=== PATIENT | male | born 1940 | race Caucasian/White ===

== ENCOUNTER 2017-01-27 10:38 | Inpatient (IN) | payer MEDICARE, MEDICAID ==
[~2017-01-27] VITALS: Ht 175.3 cm; Wt 97.7 kg
[~2017-01-27 10:38] MED LIST: AMOXICILLIN 8751 TAB PO; ASPIRIN E.C. 8181 MG PO; COZAAR 50MG50 MG/TAB PO; LASIX 40MG TABL40 MG PO; LEVEMIR FLEXPEN SC; LIPITOR 40MG TA40 MG PO; NORCO 325 MG-51 TAB PO; NOVOLOG FLEX100 U/ML SC; PLAVIX 75MG TAB75 MG PO; Phenergan PO; TYLENOL 500MG500 MG PO; VITAMIN D1000 IU PO; ZOCOR 80MG80 MG PO; ZYLOPRIM 300MG300 MG PO
[2017-01-27 14:28] VITALS: BP 119/62; PULSE 102; TEMP 98.8
[2017-01-27] MEDS ORDERED: LEVEMIR FLEX100 U/ML SQ (15:19)
[2017-01-27] MEDS ORDERED: ASPIRIN 32325 MG/TAB PO (15:20)
[2017-01-27] MEDS ORDERED: LOPRESSOR 225 MG/TAB PO (15:22)
[2017-01-27 15:47] LABS: ADJUSTED CALCIUM 9.3 mg/dL (8.4-10.2); ALBUMIN 3.3 gm/dL (3.5-5.0); CALCIUM 8.7 mg/dL (8.4-10.2); CREATININE, serum 2.94 mg/dL (0.66-1.25); POTASSIUM 5.4 mmol/L (3.4-5.0)
[2017-01-27 16:43] VITALS: BP 121/65; PULSE 67; TEMP 100.9
[2017-01-27 19:43] VITALS: BP 122/44; PULSE 99; TEMP 97.1
[2017-01-27 22:32] VITALS: BP 138/53; PULSE 75; TEMP 98.1
[2017-01-28] VITALS (7 sets, daily range): BP systolic 89–172; BP diastolic 35–86; PULSE 65–80; TEMP 97.6–99.1
[2017-01-29 04:15] VITALS: BP 106/61; PULSE 70; TEMP 97.8
[2017-01-29 06:54] LABS: MEAN CELL VOLUME 93 fl (80.0-100.0); MEAN CORPUSCULAR HGB CONC 33 g/dl (33.0-37.0); PLATELET COUNT 77 K/mm3 (130-400); RED BLOOD COUNT 3.57 M/mm3 (4.20-5.60); REDCELL DISTRIBUTION WIDTH-CV 14.2 % (11.5-14.5); WHITE BLOOD COUNT 4.3 K/mm3 (4.8-10.8)
[2017-01-29 07:02] LABS: ADD PATHOLOGY DIFF REVIEW NO; HEMATOCRIT 33.2 % (42.0-52.0); HEMOGLOBIN 10.9 g/dl (13.5-18.0); MEAN CORPUSCULAR HEMOGLOBIN 31 pg (27.0-31.0)
[2017-01-29 07:45] LABS: CALCIUM 8.6 mg/dL (8.4-10.2); CREATININE, serum 3.76 mg/dL (0.66-1.25); POTASSIUM 5.1 mmol/L (3.4-5.0)
[2017-01-29 08:02] LABS: BAND 10 % (0-10); EOSINOPHIL 1 % (0-4); NEUTROPHILS 68 % (42.0-75.2); PLATELET ESTIMATE DECREASED (NORMAL); TOTAL CELLS COUNTED 100
[2017-01-29 08:07] LABS: THYROID STIMULATING HORMONE 1.94 uIU/mL (0.465-4.680)
[2017-01-29 08:58] VITALS: BP 104/56; PULSE 72; TEMP 98.6
[2017-01-29 09:03] LABS: THYROXINE (T4)-TOTAL 5.3 ug/dL (5.5-11.0)
[2017-01-29 12:30] VITALS: BP 114/58; PULSE 70; TEMP 99.7
[2017-01-29 16:00] VITALS: BP 105/53; PULSE 70; TEMP 97.5
[2017-01-29 20:57] VITALS: BP 101/56; PULSE 70; TEMP 97.8
[2017-01-30] VITALS (7 sets, daily range): BP systolic 100–142; BP diastolic 51–70; PULSE 69–72; TEMP 97–98.9
[2017-01-30 08:10] LABS: CALCIUM 8.8 mg/dL (8.4-10.2); CREATININE, serum 3.21 mg/dL (0.66-1.25); POTASSIUM 4.7 mmol/L (3.4-5.0)
[2017-01-31 04:43] VITALS: BP 107/52; PULSE 70; TEMP 97
[2017-01-31 07:35] VITALS: BP 107/55; PULSE 75; TEMP 97.6
[2017-01-31 07:46] LABS: CALCIUM 8.5 mg/dL (8.4-10.2); POTASSIUM 4.6 mmol/L (3.4-5.0)
[2017-01-31 08:24] LABS: CREATININE, serum 3.05 mg/dL (0.66-1.25)
[2017-01-31 12:25] VITALS: BP 97/60; PULSE 108; TEMP 97.5
[2017-01-31 15:21] VITALS: BP 88/42; PULSE 70; TEMP 97.4
[2017-01-31 16:40] VITALS: BP 117/51; PULSE 69
== END 2017-01-31 20:51 | disposition home or self-care (01) | DRG 871 ==
LOC: MEDICAL 10:38 → PEDS 11:57
PROVIDERS: Internal Medicine Cardiovascular Disease
DX: A41.9 Sepsis, unspecified organism (principal); J18.9 Pneumonia, unspecified organism; N17.9 Acute kidney failure, unspecified; I13.0 Hypertensive heart and chronic kidney disease with heart failure and stage 1 through stage 4 chronic kidney disease, or unspecified chronic kidney disease; I50.32 Chronic diastolic (congestive) heart failure; L97.229 Non-pressure chronic ulcer of left calf with unspecified severity; J20.9 Acute bronchitis, unspecified; Z95.0 Presence of cardiac pacemaker; I25.119 Atherosclerotic heart disease of native coronary artery with unspecified angina pectoris; E11.22 Type 2 diabetes mellitus with diabetic chronic kidney disease; N18.3 Chronic kidney disease, stage 3 (moderate); Z89.512 Acquired absence of left leg below knee; Z89.511 Acquired absence of right leg below knee; F17.210 Nicotine dependence, cigarettes, uncomplicated
CPT/HCPCS: 99223-AI; 99231-AI; 99239; J1650; J1815; J1940; J7040

== ENCOUNTER 2017-02-02 18:00 | Inpatient (IN) | payer MEDICARE, MEDICAID ==
[~2017-02-02] VITALS: Ht 175.3 cm; Wt 108.6 kg
[2017-02-02] VITALS (258 sets, daily range): BP systolic 86–114; BP diastolic 50–58; PULSE 77–87; TEMP 101.9–102.1; O2SAT 82–100
[~2017-02-02 18:00] MED LIST changes: +ASPIRIN 32325 MG/TAB PO; +LEVEMIR FLEX100 U/ML SQ; +LOPRESSOR 225 MG/TAB PO
[2017-02-02 19:58] LABS: INR 1.4 (0.8-3.0); PROTHROMBIN TIME 15.4 SECONDS (9.7-12.8)
[2017-02-02 20:00] LABS: MEAN CELL VOLUME 91 fl (80.0-100.0); MEAN CORPUSCULAR HGB CONC 34 g/dl (33.0-37.0); MEAN PLATELET VOLUME 11.4 fl (7.4-10.4); PLATELET COUNT 99 K/mm3 (130-400); REDCELL DISTRIBUTION WIDTH-CV 13.7 % (11.5-14.5); WHITE BLOOD COUNT 10.1 K/mm3 (4.8-10.8)
[2017-02-02 20:02] LABS: ADD PATHOLOGY DIFF REVIEW NO; HEMATOCRIT 30.1 % (42.0-52.0); HEMOGLOBIN 10.2 g/dl (13.5-18.0); MEAN CORPUSCULAR HEMOGLOBIN 31 pg (27.0-31.0)
[2017-02-02 20:17] LABS: BAND 4 % (0-10); NEUTROPHILS 93 % (42.0-75.2); TOTAL CELLS COUNTED 100
[2017-02-02 20:19] LABS: ANISOCYTOSIS 1+; HYPOCHROMIA 1+; POLYCHROMASIA 1+
[2017-02-02 21:10] LABS: VENOUS BLOOD GAS BE -4.1 (-4-4); VENOUS BLOOD GAS SAO2 53.1 % (60-80); VENOUS BLOOD GAS SITE CENTRAL LINE
[2017-02-02 22:11] LABS: ARTERIAL BLOOD GAS pH 7.46 (7.35-7.45)
[2017-02-02 22:13] LABS: ALLEN TEST NO; ARTERIAL BLD GAS O2 SATURATION 96.7 % (92-100); ARTERIAL BLD GAS TCO2 CT 15.6; ARTERIAL BLOOD GAS BASE EXCESS -7.4 (-2-2); ARTERIAL BLOOD GAS PO2 100.8 mmHg (80-100); ATS? NO
[2017-02-02 22:25] LABS: ADJUSTED CALCIUM 8.9 mg/dL (8.4-10.2); ALANINE AMINOTRANSFERASE 50 U/L (21-72); ALBUMIN 2.6 gm/dL (3.5-5.0); ALKALINE PHOSPHATASE 88 U/L (50-136); ANION GAP 12 mmol/L (7-16); BLOOD UREA NITROGEN 107 mg/dL (9-20); CALCIUM 7.8 mg/dL (8.4-10.2); CARBON DIOXIDE 20 mmol/L (22-30); CHLORIDE 109 mmol/L (98-107); GLUCOSE 212 mg/dL (74-106); POTASSIUM 4.5 mmol/L (3.4-5.0); SODIUM 140 mmol/L (137-145); TOTAL PROTEIN 5.8 gm/dL (6.4-8.2)
[2017-02-02 22:37] LABS: SALICYLATE < 1.0 mg/dL
[2017-02-02 22:38] LABS: CREATININE, serum 3.95 mg/dL (0.66-1.25); TROPONIN-I 0.898 ng/mL (0.000-0.034)
[2017-02-03] VITALS (398 sets, daily range): BP systolic 101–140; BP diastolic 34–46; PULSE 62–86; TEMP 97.7–100.8; O2SAT 92–100
[2017-02-03 00:15] LABS: ARTERIAL BLOOD GAS pH 7.43 (7.35-7.45)
[2017-02-03 00:16] LABS: ARTERIAL BLD GAS O2 SATURATION 96.4 % (92-100); ARTERIAL BLD GAS TCO2 CT 18.1; ARTERIAL BLOOD GAS BASE EXCESS -5.9 (-2-2); ARTERIAL BLOOD GAS HCO3 17.3 meq/L (22-26); ATS? NO
[2017-02-03 01:18] LABS: VENOUS BLOOD GAS BE -5.3 (-4-4); VENOUS BLOOD GAS SAO2 65.7 % (60-80); VENOUS BLOOD GAS SITE CENTRAL LINE
[2017-02-03 03:45] LABS: PH 5 (5-8); URINE APPEARANCE Turbid; URINE BACTERIA None Seen /hpf; URINE BILIRUBIN Negative (NEGATIVE); URINE BLOOD 3+ (NEGATIVE); URINE COLOR Amber; URINE GLUCOSE Negative (NEGATIVE); URINE KETONE Negative (NEGATIVE); URINE RBC >50 /hpf; URINE UROBILINOGEN Negative (NEGATIVE); URINE WBC >50 /hpf
[2017-02-03 06:23] LABS: INR 1.5 (0.8-3.0); PROTHROMBIN TIME 16.6 SECONDS (9.7-12.8)
[2017-02-03 06:26] LABS: ARTERIAL BLD GAS O2 SATURATION 97.7 % (92-100); ARTERIAL BLD GAS TCO2 CT 18.4; ARTERIAL BLOOD GAS BASE EXCESS -6.9 (-2-2); ARTERIAL BLOOD GAS HCO3 17.4 meq/L (22-26); ARTERIAL BLOOD GAS PO2 130.3 mmHg (80-100); ARTERIAL BLOOD GAS pH 7.36 (7.35-7.45)
[2017-02-03 06:27] LABS: VENOUS BLOOD GAS BE -5.7 (-4-4)
[2017-02-03 06:27] LABS: ATS? NO
[2017-02-03 06:28] LABS: VENOUS BLOOD GAS SITE CENTRAL LINE
[2017-02-03 06:28] LABS: ADJUSTED CALCIUM 8.8 mg/dL (8.4-10.2); ALBUMIN 2.7 gm/dL (3.5-5.0); BILIRUBIN,TOTAL 0.9 mg/dL (0.0-1.0); CALCIUM 7.8 mg/dL (8.4-10.2); POTASSIUM 4.9 mmol/L (3.4-5.0); TOTAL PROTEIN 6.1 gm/dL (6.4-8.2)
[2017-02-03 06:45] LABS: CREATININE, serum 3.92 mg/dL (0.66-1.25)
[2017-02-03 08:42] LABS: VENOUS BLOOD GAS BE -7.8 (-4-4)
[2017-02-03 08:43] LABS: VENOUS BLOOD GAS SITE CENTRAL LINE
[2017-02-03 11:27] LABS: VENOUS BLOOD GAS BE -8.3 (-4-4); VENOUS BLOOD GAS SAO2 78.9 % (60-80)
[2017-02-03 11:28] LABS: VENOUS BLOOD GAS SITE CENTRAL LINE
== END 2017-02-03 13:40 | disposition short-term general hospital (02) | DRG 871 ==
LOC: ICU 18:00 → IMCU 18:18 → ICU 02-03 13:40
PROVIDERS: Internal Medicine; Internal Medicine Cardiovascular Disease
PROC: 02HV33Z Insertion of Infusion Device into Superior Vena Cava, Percutaneous Approach (ICD-10-PCS; principal; 2017-02-02)
DX: A41.01 Sepsis due to Methicillin susceptible Staphylococcus aureus (principal); I33.0 Acute and subacute infective endocarditis; R65.21 Severe sepsis with septic shock; N17.0 Acute kidney failure with tubular necrosis; I21.4 Non-ST elevation (NSTEMI) myocardial infarction; J96.01 Acute respiratory failure with hypoxia; J44.1 Chronic obstructive pulmonary disease with (acute) exacerbation; B95.61 Methicillin susceptible Staphylococcus aureus infection as the cause of diseases classified elsewhere; I10 Essential (primary) hypertension; E11.65 Type 2 diabetes mellitus with hyperglycemia; I25.10 Atherosclerotic heart disease of native coronary artery without angina pectoris; Z95.5 Presence of coronary angioplasty implant and graft; F17.210 Nicotine dependence, cigarettes, uncomplicated; Z95.0 Presence of cardiac pacemaker; Z91.19 Patient's noncompliance with other medical treatment and regimen
CPT/HCPCS: 99239; J1250; J1650; J1720; J1815; J3370; J7030; J7040; J7050; J7060

== ENCOUNTER 2017-03-22 08:34 | Outpatient (RCR) | payer MEDICARE, MEDICAID ==
[~2017-03-22] VITALS: Ht 175.3 cm; Wt 211.0 kg
[2017-03-22] VITALS (11 sets, daily range): BP systolic 118–152; BP diastolic 50–69; PULSE 59–63; TEMP 97.2–97.7
[2017-03-22] MEDS ORDERED: ISORDIL 10MG10 MG PO (08:44)
[2017-03-22] MEDS ORDERED: MUCINEX DM 30 M1 TE1 PO (08:46)
[2017-03-22] MEDS ORDERED: APRESOLINE 10MG10 MG PO (08:48)
[2017-03-22] MEDS ORDERED: [UNRECOGNIZED DRUG - OTHER] PO (08:49)
[2017-03-22] MEDS ORDERED: NEPHROCAP PO (08:50)
[2017-03-22] MEDS ORDERED: COUMADIN 5MG5 MG/TAB PO (08:53)
[2017-03-22] MEDS ORDERED: NORCO 325 MG-51 TAB PO (08:54)
[2017-03-22] MEDS ORDERED: TYLENOL 325MG325 MG PO (08:54)
[2017-05-13] MEDS ORDERED: FLONASEALLERGY NS (09:49)
== END 2017-06-20 ==
LOC: EUO
DX: I50.9 Heart failure, unspecified (principal); E11.9 Type 2 diabetes mellitus without complications; I48.91 Unspecified atrial fibrillation
CPT/HCPCS: J7050; P9016

== ENCOUNTER → 2017-03-29 | Outpatient (CLI) | payer MEDICARE, MEDICAID ==
[~2017-03-29] MED LIST changes: +APRESOLINE 10MG10 MG PO; +COUMADIN 5MG5 MG/TAB PO; +FLONASEALLERGY NS; +ISORDIL 10MG10 MG PO; +MUCINEX DM 30 M1 TE1 PO; +NEPHROCAP PO; +TYLENOL 325MG325 MG PO; +[UNRECOGNIZED DRUG - OTHER] PO
== END ==
LOC: COL.LAB 10:24
DX: A41.01 Sepsis due to Methicillin susceptible Staphylococcus aureus (principal); I50.32 Chronic diastolic (congestive) heart failure; I48.91 Unspecified atrial fibrillation; D64.9 Anemia, unspecified; E11.21 Type 2 diabetes mellitus with diabetic nephropathy; N17.9 Acute kidney failure, unspecified; I51.89 Other ill-defined heart diseases; R06.81 Apnea, not elsewhere classified; J94.8 Other specified pleural conditions; R06.89 Other abnormalities of breathing; R21 Rash and other nonspecific skin eruption; T17.890A Other foreign object in other parts of respiratory tract causing asphyxiation, initial encounter; Z99.2 Dependence on renal dialysis; Z79.01 Long term (current) use of anticoagulants

== ENCOUNTER → 2017-04-07 | Outpatient (CLI) | payer MEDICARE, MEDICAID ==
[2017-04-07 19:58] LABS: INR 2.2 (0.8-3.0)
== END ==
LOC: ZCOL.LAB 19:38
PROVIDERS: Family Medicine
DX: I48.91 Unspecified atrial fibrillation (principal)

== ENCOUNTER → 2017-05-13 | Outpatient (CLI) | payer MEDICARE, MEDICAID ==
[2017-05-13 09:48] VITALS: BP 155/79; PULSE 60
[2017-05-13 09:50] LABS: INR 2.8 (0.8-3.0); PROTHROMBIN TIME 32.4 SECONDS (9.7-12.8)
[2017-05-13 10:31] VITALS: BP 154/85; PULSE 60
== END ==
LOC: COL.RAD 09:00
PROVIDERS: Internal Medicine Nephrology
DX: N17.8 Other acute kidney failure (principal); Z45.2 Encounter for adjustment and management of vascular access device

== ENCOUNTER 2022-05-23 17:42 | Inpatient (IN) | payer MEDICARE ==
[~2022-05-23] VITALS: Ht 175.3 cm; Wt 83.5 kg
[2022-05-23 17:30] VITALS: BP 151/44; PULSE 60; TEMP 97.4
[2022-05-23] MEDS ORDERED: PRINIVIL10 MG PO (18:10)
[2022-05-23] MEDS ORDERED: APRESOLINE 10MG10 MG PO (18:11)
[2022-05-23] MEDS ORDERED: ISORDIL 10MG10 MG PO (18:11)
[2022-05-23] MEDS ORDERED: TOPROL XL 50MG50 MG PO (18:11)
[2022-05-23] MEDS ORDERED: VITAMIN D31000 I1 PO (18:33)
[2022-05-23] MEDS ORDERED: NATURE'S BLEND100 M2 PO (18:34)
[2022-05-23] MEDS ORDERED: ASPIRIN 32325 MG/TAB PO (18:34)
[2022-05-23 19:54] VITALS: BP 160/60; PULSE 59; TEMP 100
--- NOTE | 2022-05-23 20:00 | NUR ---
PT IN BED, ALERT AND ORIENTED X3. HAS INT TO RFA, FLUSHES WELL, IVF INITIATED. PT ASKING FOR "HEART MEDS". DENIES PAIN. HAS BILATERAL BKA, WITH REDNESS POSTERIORLY TO RT STUMP. HAS PACERMAKER TO RT CHEST. VOIDING PER URINAL.
--- NOTE | 2022-05-23 20:17 | NUR ---
REPORTED TROPONIN 0.064 TO LARRY CASILLAS. ORDERS FOR TROPONINS AT 3 HR AND 6 HR.
[2022-05-23 20:45] LABS: INR 1.4 (0.8-3.0); PROTHROMBIN TIME 16.3 SECONDS (9.7-12.8)
[2022-05-23] MEDS ORDERED: LIPITOR 80MG80 MG PO (20:48)
[2022-05-23 20:59] LABS: COLLECTION METHOD CLEAN CATCH
[2022-05-23 21:08] LABS: MUCOUS Present (NOT PRESENT); SQUAMOUS EPITHELIAL 0-2 /hpf (0-10); URINE BACTERIA None Seen /hpf (NONE SEEN)
[2022-05-23 21:11] LABS: URINE APPEARANCE Clear (CLEAR/HAZY); URINE BLOOD TRACE-INTACT (NEGATIVE); URINE COLOR Yellow (YELLOW); URINE GLUCOSE Negative (NEGATIVE); URINE KETONE Negative (NEGATIVE); URINE NITRATE Negative (NEGATIVE); URINE PROTEIN(semi-quant) 3+ (NEGATIVE); URINE UROBILINOGEN 0.2 E.U/dL (0.2-1.0)
--- NOTE | 2022-05-23 21:17 | NUR ---
NOTIFIED DR CRYSTAL OF CONSULT.
--- NOTE | 2022-05-23 23:29 | NUR ---
REPORTED TROPONIN 0.069 TO LARRY CASILLAS.
[2022-05-23 23:36] VITALS: BP 136/45; PULSE 60; TEMP 97.9
[2022-05-24 02:07] LABS: BASO # 0.1 K/mm3 (0.0-0.2); BASO % 1.5 % (0.0-2.0); EOS # 0.2 K/mm3 (0.0-0.7); EOS % 3.9 % (0.0-4.0); GRAN # 2.7 K/mm3 (1.4-6.5); GRAN % 58.2 % (42.2-75.2); LYMPH # 1.1 K/mm3 (1.2-3.4); MEAN CELL VOLUME 98 fl (80.0-100.0); MEAN CORPUSCULAR HGB CONC 33 g/dl (33.0-37.0); MONO # 0.6 K/mm3 (0.1-0.6); MONO % 12.2 % (1.7-9.3); PLATELET COUNT 95 K/mm3 (130-400); RED BLOOD COUNT 2.53 M/mm3 (4.20-5.60); REDCELL DISTRIBUTION WIDTH-CV 15.3 % (11.5-14.5)
[2022-05-24 02:11] LABS: HEMATOCRIT 24.8 % (42.0-52.0); HEMOGLOBIN 8.2 g/dl (13.5-18.0); MEAN CORPUSCULAR HEMOGLOBIN 32 pg (27-31)
--- NOTE | 2022-05-24 03:30 | NUR ---
ELEVATED TROPONIN 0.064 TO LARRY CASILLAS, NO NEW ORDERS.
[2022-05-24 03:44] VITALS: BP 138/52; PULSE 59; TEMP 97.9
--- NOTE | 2022-05-24 06:00 | NUR ---
PT REFUSES ICE PACK, DID TAKE ES TYLENOL AT 0500. IVF INFUSING TO RFA WITHOUT PROBLEM.
[2022-05-24 08:00] VITALS: BP 155/56; PULSE 108; TEMP 98.1
--- NOTE | 2022-05-24 11:00 | NUR ---
Pt doing well today. He is alert and confused to questions about date/time, but states he just does not care. Pt does know birthday and why he is here. Dr Casey has been in to talk with pt, plan for surgery tomorrow or Wednesday awaiting clearance. Pt does well turning in bed and reports pain is tolerable. PT did have small bowel movement this am.
[2022-05-24 11:54] VITALS: BP 146/48; PULSE 60; TEMP 98.1
--- NOTE | 2022-05-24 14:03 | NUR ---
LE called pt daughter, DPOA- HC, Yvette. Yvette informed SW that the pt independent and does not like help. The pt does not like to take showers and she has to make him and states to her " doesnt want to take the shit". Yvette reports he is independent on ADLs, uses a walker and PCP is [facility] and gets medications from [facility]. Yvette reports he has declinded services from services before. Yvette reports that she fears hes going to fall again, and scared/worry that hes not safe at home alone and does not feel comfortable and states " Hes not coming back to my home, and i know that sounds harsh". Yvette reports he has verbally abusive to her and she can't do it anymore. Chaz reports she works manager maritime. She reports she would like him to be in half-way and in [place] where they could see him. Le informed her that she would speak to him about his options but its his choice and I cannot make him go into a half-way. She reports "hes not coming back here". DC: Home vs NH
[2022-05-24 15:47] VITALS: BP 136/44; PULSE 60; TEMP 97.7
--- NOTE | 2022-05-24 17:13 | NUR ---
Pt has done well throughout the day. Scheduled tylenol is working for his pain. I did talk with his daughter Yvette earlier and gave her the plan for the next 24 hours. Daughter seemed to only want to get the message across that she does not want him coming back to her house. Informed her that regardless of that, he would still most likely need placement following surgery for therapy. All questions answered
[2022-05-24 19:54] VITALS: BP 130/49; PULSE 59; TEMP 98.2
[2022-05-24 21:03] LABS: ALBUMIN 2.5 gm/dL (3.4-4.8); BILIRUBIN,TOTAL 0.4 mg/dL (0.2-1.2); CALCIUM 8.5 mg/dL (8.4-10.2); CREATININE, serum 1.72 mg/dL (0.72-1.25); POTASSIUM 3.9 mmol/L (3.5-4.5); TOTAL PROTEIN 5.9 gm/dL (6.2-8.1)
[2022-05-24 23:28] VITALS: BP 140/50; PULSE 59; TEMP 98.4
[2022-05-25] VITALS (11 sets, daily range): BP systolic 113–161; BP diastolic 34–78; PULSE 53–82; TEMP 97.3–98.8
--- NOTE | 2022-05-25 05:44 | NUR ---
pt NPO since midnight, IVF infusing per PIV @ 60cc/hr, no SSI required this shift. tylenol controlling pain.
[2022-05-25 11:11] LABS: CALCIUM 8.3 mg/dL (8.4-10.2); CREATININE, serum 1.6 mg/dL (0.72-1.25); POTASSIUM 3.8 mmol/L (3.5-4.5)
--- NOTE | 2022-05-25 11:15 | NUR ---
Talked to Anesthesiologist Austin and got an order to hold the lisinopril.
--- NOTE | 2022-05-25 13:38 | NUR ---
Patient is wheeled to the surgery at 1320 by Carroll, called patient's daughter Yvette to ask for consent and she consented in behalf, scrubbing done on the site, preoperative checklist done, has been refusing to move when ask by this staff due to pain upon movement, new IV bag hung, questions and concerns addressed.
--- NOTE | 2022-05-25 19:26 | NUR ---
Patient has done well post op. More awake & alert now. He tolerated dinner. Now talking on the phone with his daughter. Right hip aquacell dressing intact. Ice pack on. Ivf per orders. Freddie allen DD. REport to [facility]
--- NOTE | 2022-05-25 23:32 | NUR ---
SHIFT REPORT FROM SMI[facility] MO. PATIENT IN BED ON ROOM ENTRY. ALERT AND ORIENTED. POSTOP VITALS FINISHING. PATIENT TOLERATED ADA DIET DINNER. GARCIA TO DD WITH CLEAR YELLOW OUTPUT. AQUACELL TO R HIP CDI. PATIENT DENIES PAIN. ICE IS IN PLACE. NO ADDITIONAL NEEDS AT THIS TIME. CALL LIGHT IN REACH.
[2022-05-26 04:39] VITALS: BP 154/52; PULSE 60; TEMP 97.3
[2022-05-26 06:35] LABS: CALCIUM 8.1 mg/dL (8.4-10.2); CREATININE, serum 2.02 mg/dL (0.72-1.25); POTASSIUM 4.7 mmol/L (3.5-4.5)
[2022-05-26 07:05] LABS: BASO % 0.2 % (0.0-2.0); GRAN # 5.8 K/mm3 (1.4-6.5); GRAN % 87.6 % (42.2-75.2); LYMPH # 0.4 K/mm3 (1.2-3.4); LYMPH % 6.4 % (20.0-51.0); MEAN CELL VOLUME 102 fl (80.0-100.0); MEAN CORPUSCULAR HGB CONC 35 g/dl (33.0-37.0); MEAN PLATELET VOLUME 11.3 fl (7.4-10.4); MONO # 0.3 K/mm3 (0.1-0.6); PLATELET COUNT 110 K/mm3 (130-400); RED BLOOD COUNT 2.23 M/mm3 (4.20-5.60); REDCELL DISTRIBUTION WIDTH-CV 15.4 % (11.5-14.5)
[2022-05-26 07:06] LABS: HEMATOCRIT 22.7 % (42.0-52.0); HEMOGLOBIN 7.9 g/dl (13.5-18.0); MEAN CORPUSCULAR HEMOGLOBIN 35 pg (27-31)
[2022-05-26 07:30] VITALS: BP 120/48; PULSE 59; TEMP 98.4
[2022-05-26 11:37] VITALS: BP 103/48; PULSE 68; TEMP 97.7
--- NOTE | 2022-05-26 13:48 | NUR ---
[facility] is unable to accept this patient due to being at capacity. [facility] will not have a male bed until Wednesday at the earliest. Pooja with [facility] is unable to accept due to being at capacity. LE spoke with DIONICIO Toure at [facility]. They are wanting to know how close the patient is to dialysis, is the family willing to establish a PCP and what their nursing home goal is for the patient. Phone call made to Radha to find out the patients nephrology plan.
[2022-05-26 15:04] VITALS: BP 104/47; PULSE 63; TEMP 97.6
--- NOTE | 2022-05-26 15:54 | NUR ---
Additional referrals faxed to: [facility] Fernando Harley with [facility] contacted me stating that they are able to accept this patient as long as he is ok with the 20% payment after 20 days. Sw contacted the patient's daughter Yvette who states that he father is not going to be happy that he cannot get into [facility]. I informed her that even though he may not start out there, he can possibly transfer once they do have an opening. Yvette reiterated that at this time, the plan continues to be SNF to LTC. Yvette in very insistent that her father cannot come back to her house. When asked about the patient's payor source, Yvette states that the patient did have [place] at one time,but she couldn't figure out how to keep him on it. Email sent to hospital financial counselor to assist with the [place] process.
--- NOTE | 2022-05-26 16:28 | NUR ---
LE met with patient to notify him that [facility] is able to accept him for admit tomorrow. Informed patient that after 20 days, he would be responsible for the 20% that [facility] doesn't cover. Patient relied " well they're not getting shit from me back i don't have shit to give'. Patient presented with MCR.IM form. Form read aloud to patient and he verbalized his understanding. Patient's signed original placed in the patient's chart and copy provided back to the patient. Covid swab requested. Cricket with [facility] informed of the above. Discharge plan: [facility]
--- NOTE | 2022-05-26 18:15 | NUR ---
Patient alert and orientedx4, with IV on his right forearm infusing well, with prosthesis, worked with PT Renny this am, denies pain, concerns and questions addressed, call light and personal items within reach.
[2022-05-26 20:00] VITALS: BP 101/42; PULSE 63; TEMP 98.1
--- NOTE | 2022-05-26 20:00 | NUR ---
PT IN BED. IS ALERT AND ORIENTED. ASSISTED WITH REMOVAL OF BILATERAL PROSTHETICS. HAS IVF INFUSING TO RFA WITHOUT REDNESS OR SWELLING. GARCIA PATENT WITH YELLOW URINE. DENIES PAIN. HAS MAHAD VAZQUEZG TO RT HIP.
[2022-05-27] VITALS (13 sets, daily range): BP systolic 95–132; BP diastolic 35–62; PULSE 58–84; TEMP 97–977
[2022-05-27 07:02] LABS: BASO % 0.3 % (0.0-2.0); EOS # 0.1 K/mm3 (0.0-0.7); EOS % 0.8 % (0.0-4.0); GRAN % 79.1 % (42.2-75.2); LYMPH # 1.2 K/mm3 (1.2-3.4); LYMPH % 13.9 % (20.0-51.0); MEAN CELL VOLUME 100 fl (80.0-100.0); MEAN CORPUSCULAR HGB CONC 32 g/dl (33.0-37.0); MEAN PLATELET VOLUME 10.9 fl (7.4-10.4); MONO # 0.5 K/mm3 (0.1-0.6); MONO % 5.6 % (1.7-9.3); PLATELET COUNT 117 K/mm3 (130-400); RED BLOOD COUNT 1.99 M/mm3 (4.20-5.60); REDCELL DISTRIBUTION WIDTH-CV 15.9 % (11.5-14.5)
[2022-05-27 07:09] LABS: HEMATOCRIT 19.8 % (42.0-52.0); MEAN CORPUSCULAR HEMOGLOBIN 32 pg (27-31)
[2022-05-27 07:10] LABS: HEMOGLOBIN 6.4 g/dl (13.5-18.0)
--- NOTE | 2022-05-27 07:22 | NUR ---
Called Leesa at 0722 for a critical result hgb 6.4.
[2022-05-27 07:24] LABS: CALCIUM 8.3 mg/dL (8.4-10.2); CREATININE, serum 2.59 mg/dL (0.72-1.25); POTASSIUM 4.5 mmol/L (3.5-4.5)
--- NOTE | 2022-05-27 09:17 | NUR ---
CALLED [facility] AT 0916 FOR [facility] REFERRAL.
--- NOTE | 2022-05-27 09:37 | NUR ---
[facility] accepts patient to skilled care upon discharge. wax ball knock out worker spoke with M[facility] and advised that patient is receiving blood today and will not transfer today.
[2022-05-27 11:42] LABS: CREATININE, serum 2.44 mg/dL (0.72-1.25); SODIUM 141 mmol/L (136-145)
--- NOTE | 2022-05-27 14:56 | NUR ---
NOTIFIED BOZENA CAMILO OF [facility] DURING TRANSFER. THE BALLOON WAS COMPLETELY EMPTY. PT HAS NO ISSUES. [facility]ICARE PROVIDED.
--- NOTE | 2022-05-27 15:49 | NUR ---
Patient alert and oriented, with IV on right forearm infusing well, had one unit of blood, denies pain, worked with the PT this afternoon, encouraged to use the IS and the relevance of it, call light and personal items within reach.
[2022-05-27 18:15] LABS: HEMATOCRIT 19.6 % (42.0-52.0); HEMOGLOBIN 6.5 g/dl (13.5-18.0)
--- NOTE | 2022-05-27 18:21 | NUR ---
CALLED CRITICAL [facility] TO [facility] NEW ORDERS RECIEVED.
[2022-05-28] VITALS (8 sets, daily range): BP systolic 98–134; BP diastolic 41–52; PULSE 59–69; TEMP 97.7–98.6
--- NOTE | 2022-05-28 00:05 | NUR ---
SHIFT REPORT FROM SMILEY MO AND DALIA RN. PATIENT IN BED ON ROOM ENTRY. ALERT AND ORIENTED. AQUACELL TO R HIP CDI. PATIENT DENIES PAIN. SECOND UNIT OF PRBC INFUSING NOW. PATIENT TOLERATING WITHOUT ISSUE. PATIENT NOW ON 1 L O2 DUE TO HIS O2 SATS DROPPING WHEN ASLEEP.
[2022-05-28 02:24] LABS: HEMATOCRIT 22.9 % (42.0-52.0); HEMOGLOBIN 7.5 g/dl (13.5-18.0)
--- NOTE | 2022-05-28 02:28 | NUR ---
POST BLOOD HGB WAS 7.5. CALLED TO [facility]. NO NEW ORDERS AT THIS TIME.
[2022-05-28 06:29] LABS: BASO % 0.3 % (0.0-2.0); EOS # 0.3 K/mm3 (0.0-0.7); EOS % 4.1 % (0.0-4.0); GRAN # 4.8 K/mm3 (1.4-6.5); GRAN % 77.2 % (42.2-75.2); LYMPH # 0.7 K/mm3 (1.2-3.4); LYMPH % 10.7 % (20.0-51.0); MEAN CELL VOLUME 97 fl (80.0-100.0); MEAN CORPUSCULAR HGB CONC 33 g/dl (33.0-37.0); MEAN PLATELET VOLUME 10.4 fl (7.4-10.4); MONO # 0.5 K/mm3 (0.1-0.6); MONO % 7.2 % (1.7-9.3); PLATELET COUNT 93 K/mm3 (130-400); RED BLOOD COUNT 2.33 M/mm3 (4.20-5.60); REDCELL DISTRIBUTION WIDTH-CV 16.6 % (11.5-14.5)
[2022-05-28 06:33] LABS: HEMATOCRIT 22.6 % (42.0-52.0); HEMOGLOBIN 7.5 g/dl (13.5-18.0); MEAN CORPUSCULAR HEMOGLOBIN 32 pg (27-31)
[2022-05-28 06:50] LABS: CALCIUM 8.1 mg/dL (8.4-10.2); CREATININE, serum 2.26 mg/dL (0.72-1.25); POTASSIUM 4.4 mmol/L (3.5-4.5)
[2022-05-28] MEDS ORDERED: VITAMIN C500 MG PO (11:37)
[2022-05-28] MEDS ORDERED: OSCAL 500 TAB500 MG PO (11:37)
[2022-05-28] MEDS ORDERED: DUO-KAPS1 CAP PO (11:37)
--- NOTE | 2022-05-28 22:26 | NUR ---
SHIFT REPORT FROM GISELLE MO. PATIENT IN BED ON ROOM ENTRY. ALERT AND ORIENTED. HS MEDS PER EMAR. DENIES PAIN. AQUACELL TO R HIP CDI. REMAINS ON ROOM AIR.
[2022-05-29 04:22] VITALS: BP 121/44; PULSE 60; TEMP 98.6
[2022-05-29 07:08] LABS: BASO % 0.3 % (0.0-2.0); EOS # 0.2 K/mm3 (0.0-0.7); EOS % 3.3 % (0.0-4.0); GRAN # 5.5 K/mm3 (1.4-6.5); GRAN % 79.9 % (42.2-75.2); LYMPH # 0.6 K/mm3 (1.2-3.4); LYMPH % 8.5 % (20.0-51.0); MEAN CELL VOLUME 95 fl (80.0-100.0); MEAN CORPUSCULAR HGB CONC 34 g/dl (33.0-37.0); MONO # 0.5 K/mm3 (0.1-0.6); MONO % 7.7 % (1.7-9.3); PLATELET COUNT 107 K/mm3 (130-400); RED BLOOD COUNT 2.37 M/mm3 (4.20-5.60); REDCELL DISTRIBUTION WIDTH-CV 16.4 % (11.5-14.5)
[2022-05-29 07:10] LABS: HEMATOCRIT 22.4 % (42.0-52.0); HEMOGLOBIN 7.5 g/dl (13.5-18.0); MEAN CORPUSCULAR HEMOGLOBIN 32 pg (27-31)
[2022-05-29 07:31] LABS: CALCIUM 8.3 mg/dL (8.4-10.2); CREATININE, serum 2.08 mg/dL (0.72-1.25); POTASSIUM 4.7 mmol/L (3.5-4.5)
[2022-05-29 07:46] VITALS: BP 139/50; PULSE 61; TEMP 98.5
[2022-05-29] MEDS ORDERED: PROTONIX 40MG T40 MG PO (08:53)
[2022-05-29] MEDS ORDERED: ROXICODONE 55 MG/TAB PO ×2 (08:55→08:59)
--- NOTE | 2022-05-29 09:49 | NUR ---
Patient's clinical updates and discharge orders faxed to Cricket at [facility]. Awaiting transportation time from the facility. Patient presented with MCR.IM form. Signed original placed in the patients chart and copy provided back to the patient.
--- NOTE | 2022-05-29 10:03 | NUR ---
Transportation arranged for the patient to be picked up at 1200 by agency. Patient's RN and family provided update.
--- NOTE | 2022-05-29 11:20 | NUR ---
CALLED REPORT TO ALLYSON AT [facility], TRANSPORT TO [facility] AT [facility], ALL QESTIONS AND CONCERNS WERE ADDRESSED, PHONE NUMBER LEFT W/ALLYSON IF SHE HAS ANY OTHER QUESTIONS, IV REMOVED, PT TOLERATED WELL, PT DC'D TO [facility]
--- NOTE | 2022-05-29 12:15 | NUR ---
DISCHARGED DISCUSSED W/PT, ALL QUESTIONS AND CONCERNS WERE ADDRESSED, TRANSPORT P/U PT, REPORT CALLED TO ALLYSON AT [facility]
== END 2022-05-29 12:08 | DRG 521 ==
LOC: SURG 17:42
PROVIDERS: Nurse Practitioner Family; Orthopaedic Surgery Sports Medicine; Physician Assistant; Registered Nurse; Student in an Organized Health Care Education/Training Program; ADMIT Internal Medicine
PROC: 0SRR0J9 Replacement of Right Hip Joint, Femoral Surface with Synthetic Substitute, Cemented, Open Approach (ICD-10-PCS; principal; 2022-05-25 14:00)
DX: S72.041A Displaced fracture of base of neck of right femur, initial encounter for closed fracture (principal); I21.A1 Myocardial infarction type 2; N17.0 Acute kidney failure with tubular necrosis; I13.0 Hypertensive heart and chronic kidney disease with heart failure and stage 1 through stage 4 chronic kidney disease, or unspecified chronic kidney disease; I50.22 Chronic systolic (congestive) heart failure; E78.5 Hyperlipidemia, unspecified; I25.10 Atherosclerotic heart disease of native coronary artery without angina pectoris; I95.81 Postprocedural hypotension; I48.91 Unspecified atrial fibrillation; I44.1 Atrioventricular block, second degree; E11.51 Type 2 diabetes mellitus with diabetic peripheral angiopathy without gangrene; E11.22 Type 2 diabetes mellitus with diabetic chronic kidney disease; N18.30 Chronic kidney disease, stage 3 unspecified; D64.9 Anemia, unspecified; E55.9 Vitamin D deficiency, unspecified; I27.20 Pulmonary hypertension, unspecified; Z96.653 Presence of artificial knee joint, bilateral; D69.6 Thrombocytopenia, unspecified; W18.39XA Other fall on same level, initial encounter; M62.81 Muscle weakness (generalized); I08.0 Rheumatic disorders of both mitral and aortic valves; Z20.822 Contact with and (suspected) exposure to COVID-19; Z79.82 Long term (current) use of aspirin; Z95.0 Presence of cardiac pacemaker; I25.2 Old myocardial infarction; Z87.891 Personal history of nicotine dependence; Y93.89 Activity, other specified; Y92.89 Other specified places as the place of occurrence of the external cause
CPT/HCPCS: A4314; A9284; C1776; J0690; J1100; J1815; J2250; J2405; J2704; J3010; J7030; J7040; J7120; J7121; P9016

== ENCOUNTER → 2022-06-06 | Outpatient (CLI) | payer MEDICARE ==
[~2022-06-06] MED LIST changes: +DUO-KAPS1 CAP PO; +LIPITOR 80MG80 MG PO; +NATURE'S BLEND100 M2 PO; +OSCAL 500 TAB500 MG PO; +PRINIVIL10 MG PO; +PROTONIX 40MG T40 MG PO; +ROXICODONE 55 MG/TAB PO; +TOPROL XL 50MG50 MG PO; +VITAMIN C500 MG PO; +VITAMIN D31000 I1 PO
[2022-06-06 07:22] LABS: BASO % 0.3 % (0.0-2.0); EOS # 0.4 K/mm3 (0.0-0.7); EOS % 5.5 % (0.0-4.0); GRAN # 5.9 K/mm3 (1.4-6.5); GRAN % 76.5 % (42.2-75.2); LYMPH # 0.9 K/mm3 (1.2-3.4); LYMPH % 11.4 % (20.0-51.0); MEAN CELL VOLUME 100 fl (80.0-100.0); MEAN CORPUSCULAR HGB CONC 32 g/dl (33.0-37.0); MEAN PLATELET VOLUME 10.6 fl (7.4-10.4); MONO # 0.5 K/mm3 (0.1-0.6); PLATELET COUNT 125 K/mm3 (130-400); RED BLOOD COUNT 2.22 M/mm3 (4.20-5.60); REDCELL DISTRIBUTION WIDTH-CV 16.2 % (11.5-14.5)
[2022-06-06 07:24] LABS: HEMATOCRIT 22.1 % (42.0-52.0); HEMOGLOBIN 7.1 g/dl (13.5-18.0); MEAN CORPUSCULAR HEMOGLOBIN 32 pg (27-31)
[2022-06-06 08:00] LABS: ALBUMIN 2.4 gm/dL (3.4-4.8); BILIRUBIN,TOTAL 1.4 mg/dL (0.2-1.2); CALCIUM 7.9 mg/dL (8.4-10.2); CREATININE, serum 1.72 mg/dL (0.72-1.25); POTASSIUM 4.3 mmol/L (3.5-4.5); TOTAL PROTEIN 5.2 gm/dL (6.2-8.1)
[2022-06-06 08:10] LABS: THYROID STIMULATING HORMONE 1.299 uIU/mL (0.350-4.940)
== END ==
LOC: ZCOL.LAB 05:45
PROVIDERS: Family Medicine
DX: Z01.89 Encounter for other specified special examinations (principal)